=== PATIENT | male | born 1965 | race Caucasian/White ===

== ENCOUNTER → 2017-04-12 | Outpatient (CLI) | payer OTHER ==
[~2017-04-12] MED LIST: ASPIR 8181 MG PO; BENICAR20 MG PO; MULTAQ400 MG PO; PRADAXA150 MG PO; SAVAYSA60 MG PO; TOPROL XL25 MG PO; ZOCOR20 MG PO
== END ==
LOC: CAT 13:05
DX: Z13.6 Encounter for screening for cardiovascular disorders (principal)

== ENCOUNTER → 2020-12-30 | Outpatient (CLI) | payer OTHER | LOC: RAD 11:08 | PROVIDERS: ATTEND Internal Medicine Pulmonary Disease | DX: R06.02 Shortness of breath (principal) ==